=== PATIENT | male | born 1980 | race Caucasian/White ===

== ENCOUNTER 2017-03-11 03:50 | Emergency (ER) | payer MEDICAID ==
[~2017-03-11] VITALS: Ht 175.3 cm; Wt 81.2 kg
[~2017-03-11 03:50] MED LIST: Z.0.NO CURRENT MEDS
[2017-03-11 03:55] VITALS: BP 122/64; PULSE 72; RESP 18; TEMP 98.6; O2SAT 99
[2017-03-11] MEDS ORDERED: SODIUM CHLORIDE 0.9% FLUSH 10 ML FLUSH IVF PRN (04:30)
--- NOTE | 2017-03-11 04:30 | PD ---
HPI Chief Complaint: Chest Pain Time Seen by Provider: 04:27 Travel History International Travel<30 days: No Contact w/Intl Traveler<30days: No Traveled to known affect area: No History of Present Illness HPI 36-year-old male presents to the emergency department by EMS transport for complaint of chest pain onset 20 minutes prior to arrival to EMS transport. Patient received 162 mg of aspirin once a little nitroglycerin spray without symptom relief however patient here tells me he has no chest pain and that he wants to be Baron acted as he plans on killing himself and he has already ingested/ taken multiple medications prior to midnight and does not know what medications he took or how much of each medication that he took. Patient does complain of nausea. No prior history of cardiac disease. Patient states he has tried to hang himself in the past and is suicidal at this time. PFSH Past Medical History Medical History: Denies Significant Hx Depression: Yes (WITH SUICIDAL IDEATION AND PLANS) Diminished Hearing: No Tetanus Vaccination: > 5 Years Influenza Vaccination: No Past Surgical History Surgical History: No Previous Surgery Social History Alcohol Use: Yes (1 BEER TONIGHT "RARELY DRINKS".) Tobacco Use: No (DIPS) Substance Use: No Allergies-Medications (Allergen,Severity, Reaction): Coded Allergies: No Known Allergies (Unverified , 03/11/17) Reported Meds & Prescriptions Reported Meds & Active Scripts Active No Active Prescriptions or Reported Medications Review of Systems Except as stated in HPI: all other systems reviewed are Neg General / Constitutional: No: Fever Eyes: No: Visual changes HENT: No: Headaches, Congestion Cardiovascular: Positive: Chest Pain or Discomfort, No: Palpitations, Diaphoresis Respiratory: No: Shortness of Breath Gastrointestinal: Positive: Nausea, No: Vomiting, Diarrhea, Abdominal Pain Genitourinary: No: Dysuria Musculoskeletal: No: Myalgias, Arthralgias Skin: No Rash Neurologic: No: Weakness, Dizziness, Syncope Psychiatric: Positive: Depression, Suicidal Ideations, Mood Disorder, Substance Abuse, No: Anxiety Hematologic/Lymphatic: No: Lymph Node Enlargement Physical Exam Narrative GENERAL: Well-developed well-nourished male in no acute distress no respiratory distress reports "Doctor, I want to kill myself; you have to Baron Act me". SKIN: Warm and dry. HEAD: Normocephalic. EYES: No scleral icterus. No injection or drainage. NECK: Supple, trachea midline. No JVD or lymphadenopathy. CARDIOVASCULAR: Regular rate and rhythm without murmurs, gallops, or rubs. RESPIRATORY: Breath sounds equal bilaterally. No accessory muscle use. GASTROINTESTINAL: Abdomen soft, non-tender, nondistended. MUSCULOSKELETAL: No cyanosis, or edema. BACK: Nontender without obvious deformity. No CVA tenderness. Data Data Last Documented VS Vital Signs Date Time Temp Pulse Resp B/P (MAP) Pulse Ox O2 Delivery O2 Flow Rate FiO2 03/11/17 06:46 72 14 111/65 (80) 98 Room Air 03/11/17 03:55 98.6 Orders Orders Electrocardiogram (03/11/17 04:27) Complete Blood Count With Diff (03/11/17 04:27) Comprehensive Metabolic Panel (03/11/17 04:27) Prothrombin Time / Inr (Pt) (03/11/17 04:27) Act Partial Throm Time (Ptt) (03/11/17 04:27) Urinalysis - C+S If Indicated (03/11/17 04:27) Chest, Single Ap (03/11/17 04:27) Blood Glucose (03/11/17 04:27) Iv Access Insert/Monitor (03/11/17 04:27) Ecg Monitoring (03/11/17 04:27) Oximetry (03/11/17 04:27) Psych Screen (03/11/17 04:27) Sodium Chloride 0.9% Flush (Ns Flush) (03/11/17 04:30) Drug Screen, Random Urine (03/11/17 04:27) Alcohol (Ethanol) (03/11/17 04:27) Salicylates (Aspirin) (03/11/17 04:27) Tylenol (Acetaminophen) (03/11/17 04:27) Troponin I (03/11/17 04:27) Ckmb (Isoenzyme) Profile (03/11/17 04:27) CKMB (03/11/17 04:30) CKMB% (03/11/17 04:30) Sodium Chlor 0.9% 1000 Ml Inj (Ns 1000 M (03/11/17 07:30) Labs Laboratory Tests Test 03/11/17 04:30 White Blood Count 11.7 TH/MM3 Red Blood Count 4.31 MIL/MM3 Hemoglobin 13.2 GM/DL Hematocrit 39.4 % Mean Corpuscular Volume 91.4 FL Mean Corpuscular Hemoglobin 30.6 PG Mean Corpuscular Hemoglobin Concent 33.5 % Red Cell Distribution Width 12.7 % Platelet Count 226 TH/MM3 Mean Platelet Volume 8.3 FL Neutrophils (%) (Auto) 81.6 % Lymphocytes (%) (Auto) 11.0 % Monocytes (%) (Auto) 6.8 % Eosinophils (%) (Auto) 0.3 % Basophils (%) (Auto) 0.3 % Neutrophils # (Auto) 9.6 TH/MM3 Lymphocytes # (Auto) 1.3 TH/MM3 Monocytes # (Auto) 0.8 TH/MM3 Eosinophils # (Auto) 0.0 TH/MM3 Basophils # (Auto) 0.0 TH/MM3 CBC Comment DIFF FINAL Differential Comment Prothrombin Time 11.1 SEC Prothromb Time International Ratio 1.0 RATIO Activated Partial Thromboplast Time 27.2 SEC Blood Urea Nitrogen 17 MG/DL Creatinine 1.14 MG/DL Random Glucose 71 MG/DL Total Protein 7.2 GM/DL Albumin 4.0 GM/DL Calcium Level 8.7 MG/DL Alkaline Phosphatase 61 U/L Aspartate Amino Transf (AST/SGOT) 29 U/L Alanine Aminotransferase (ALT/SGPT) 33 U/L Total Bilirubin 0.9 MG/DL Sodium Level 140 MEQ/L Potassium Level 3.5 MEQ/L Chloride Level 105 MEQ/L Carbon Dioxide Level 26.9 MEQ/L Anion Gap 8 MEQ/L Estimat Glomerular Filtration Rate 73 ML/MIN Total Creatine Kinase 834 U/L Creatine Kinase MB 5.2 NG/ML Creatine Kinase MB % 0.6 % Troponin I LESS THAN 0.02 NG/ML Salicylates Level LESS THAN 1.7 MG/DL Acetaminophen Level LESS THAN 2.0 MCG/ML Ethyl Alcohol Level LESS THAN 3 MG/DL [facility] Medical Decision Making Medical Screen Exam Complete: Yes Emergency Medical Condition: Yes Medical Record Reviewed: Yes Interpretation(s) EKG sinus rhythm rate 70 extensive artifact with early repolarization ST elevation no reciprocal ST segment depression or T-wave inversion Differential Diagnosis Generalized weakness, viral syndrome, arrhythmia, electronic disturbance, dehydration, pneumonia,SIRS sepsis Narrative Course Patient administered IV fluids and Zofran; imaging studies ordered including CT brain noncontrast Patient taking oral hydration well after negative CT brain Care signed over to oncoming physician Dr. Chairez Scripts No Active Prescriptions or Reported Meds Wanda Flores MD Mar 11, 2017 04:30
[2017-03-11 04:44] LABS: AUTOMATED NEUTROPHIL # 9.6 TH/MM3 (1.8-7.7); BASOPHIL % 0.3 % (0.0-2.0); EOSINOPHIL % 0.3 % (0.0-4.0); HEMATOCRIT 39.4 % (39.0-51.0); HEMO FLAGS DIFF FINAL; LYMPHOCYTE # 1.3 TH/MM3 (1.0-4.8); MEAN CELL VOLUME 91.4 FL (80.0-100.0); MEAN CORPUSCULAR HEMOGLOBIN 30.6 PG (27.0-34.0); MEAN CORPUSCULAR HGB CONC 33.5 % (32.0-36.0); MONO % 6.8 % (0.0-8.0); NEUT % 81.6 % (16.0-70.0); PLATELET COUNT 226 TH/MM3 (150-450); RED BLOOD COUNT 4.31 MIL/MM3 (4.50-5.90); RED CELL DISTRIBUTION WIDTH 12.7 % (11.6-17.2); WHITE BLOOD COUNT 11.7 TH/MM3 (4.0-11.0)
[2017-03-11 05:01] LABS: APTT (PATIENT) 27.2 SEC (24.3-30.1); PROTHROMBIN TIME - PATIENT 11.1 SEC (9.8-11.6)
--- NOTE | 2017-03-11 05:08 | RADRPT ---
EXAM DATE/TIME: 03/11/2017 04:33 [place] COMPARISON: No previous studies available for comparison. INDICATIONS : Syncope. MEDICAL HISTORY : None. SURGICAL HISTORY : None. ENCOUNTER: Initial ACUITY: 1 day PAIN SCORE: 4/10 LOCATION: Left chest FINDINGS: A single view of the chest demonstrates the lungs to be symmetrically aerated without evidence of mas s, infiltrate or effusion. The cardiomediastinal contours are unremarkable. Osseous structures are intact. CONCLUSION: No acute disease. Stoney Cruz MD on March 11, 2017 at 5:06 Board Certified Radiologist. This report was verified electronically.
[2017-03-11 05:16] LABS: ACETAMINOPHEN LESS THAN 2.0 MCG/ML (10.0-30.0); ALT (GPT) 33 U/L (12-78); ANION GAP 8 MEQ/L (5-15); AST (GOT) 29 U/L (15-37); BICARBONATE 26.9 MEQ/L (21.0-32.0); BLOOD UREA NITROGEN 17 MG/DL (7-18); CHLORIDE 105 MEQ/L (98-107); GLOMERULAR FILTRATION RATE 73 ML/MIN (>89); POTASSIUM 3.5 MEQ/L (3.5-5.1); SODIUM (NA) 140 MEQ/L (136-145)
[2017-03-11 05:20] LABS: ALKALINE PHOSPHATASE 61 U/L (45-117); CREATINE KINASE 834 U/L (39-308); TOTAL BILIRUBIN ADULT 0.9 MG/DL (0.2-1.0)
[2017-03-11 05:33] LABS: CKMB 5.2 NG/ML (0.5-3.6)
[2017-03-11 05:42] LABS: ALCOHOL LESS THAN 3 MG/DL (0-5)
[2017-03-11 06:46] VITALS: BP 111/65; PULSE 72; RESP 14; O2SAT 98
[2017-03-11] MEDS ORDERED: SODIUM CHLOR 0.9% 1000 ML INJ 1,000 ML IV ONE (07:30)
--- NOTE | 2017-03-11 10:26 | EKG ---
Date Performed: 03/11/2017 Time Performed: 04:15:28 PTAGE: 36 years EKG: Sinus rhythm EARLY REPOLARIZATION BORDERLINE ECG NO PREVIOUS TRACING DOCTOR: Clay Armstrong Interpretating Date/Time 03/11/2017 10:20:02
[2017-03-11 11:48] LABS: BLOOD, URINE NEG (NEG); COMMENT (UR) CULT NOT INDICATED; CULTURE IF INDICATED CULT NOT INDICATED; GLUCOSE,URINE NEG (NEG); HYALINE CAST, URINE 3 /lpf (RARE); KETONE, URINE 150 mg/dL (NEG); MUCUS URINE MANY /lpf (OCC); NITRITE,URINE NEG (NEG); SQUAMOUS EPITHELIAL CELL URINE 1 /hpf (0-5); URINE COLOR YELLOW (YELLW/STRAW)
[2017-03-11 12:00] VITALS: BP 129/76; PULSE 62; RESP 18; TEMP 98.7; O2SAT 98
--- NOTE | 2017-03-11 13:23 | PD ---
Physical Exam Narrative Patient was seen by ED physician and signed out to me. Data Data Last Documented VS Vital Signs Date Time Temp Pulse Resp B/P (MAP) Pulse Ox O2 Delivery O2 Flow Rate FiO2 03/11/17 06:46 72 14 111/65 (80) 98 Room Air 03/11/17 03:55 98.6 Orders Orders Electrocardiogram (03/11/17 04:27) Complete Blood Count With Diff (03/11/17 04:27) Comprehensive Metabolic Panel (03/11/17 04:27) Prothrombin Time / Inr (Pt) (03/11/17 04:27) Act Partial Throm Time (Ptt) (03/11/17 04:27) Urinalysis - C+S If Indicated (03/11/17 04:27) Chest, Single Ap (03/11/17 04:27) Blood Glucose (03/11/17 04:27) Iv Access Insert/Monitor (03/11/17 04:27) Ecg Monitoring (03/11/17 04:27) Oximetry (03/11/17 04:27) Psych Screen (03/11/17 04:27) Sodium Chloride 0.9% Flush (Ns Flush) (03/11/17 04:30) Drug Screen, Random Urine (03/11/17 04:27) Alcohol (Ethanol) (03/11/17 04:27) Salicylates (Aspirin) (03/11/17 04:27) Tylenol (Acetaminophen) (03/11/17 04:27) Troponin I (03/11/17 04:27) Ckmb (Isoenzyme) Profile (03/11/17 04:27) CKMB (03/11/17 04:30) CKMB% (03/11/17 04:30) Sodium Chlor 0.9% 1000 Ml Inj (Ns 1000 M (03/11/17 07:30) Diet Regular Basic (03/11/17 Breakfast) Labs Laboratory Tests Test 03/11/17 04:30 03/11/17 11:20 White Blood Count 11.7 TH/MM3 Red Blood Count 4.31 MIL/MM3 Hemoglobin 13.2 GM/DL Hematocrit 39.4 % Mean Corpuscular Volume 91.4 FL Mean Corpuscular Hemoglobin 30.6 PG Mean Corpuscular Hemoglobin Concent 33.5 % Red Cell Distribution Width 12.7 % Platelet Count 226 TH/MM3 Mean Platelet Volume 8.3 FL Neutrophils (%) (Auto) 81.6 % Lymphocytes (%) (Auto) 11.0 % Monocytes (%) (Auto) 6.8 % Eosinophils (%) (Auto) 0.3 % Basophils (%) (Auto) 0.3 % Neutrophils # (Auto) 9.6 TH/MM3 Lymphocytes # (Auto) 1.3 TH/MM3 Monocytes # (Auto) 0.8 TH/MM3 Eosinophils # (Auto) 0.0 TH/MM3 Basophils # (Auto) 0.0 TH/MM3 CBC Comment DIFF FINAL Differential Comment Prothrombin Time 11.1 SEC Prothromb Time International Ratio 1.0 RATIO Activated Partial Thromboplast Time 27.2 SEC Blood Urea Nitrogen 17 MG/DL Creatinine 1.14 MG/DL Random Glucose 71 MG/DL Total Protein 7.2 GM/DL Albumin 4.0 GM/DL Calcium Level 8.7 MG/DL Alkaline Phosphatase 61 U/L Aspartate Amino Transf (AST/SGOT) 29 U/L Alanine Aminotransferase (ALT/SGPT) 33 U/L Total Bilirubin 0.9 MG/DL Sodium Level 140 MEQ/L Potassium Level 3.5 MEQ/L Chloride Level 105 MEQ/L Carbon Dioxide Level 26.9 MEQ/L Anion Gap 8 MEQ/L Estimat Glomerular Filtration Rate 73 ML/MIN Total Creatine Kinase 834 U/L Creatine Kinase MB 5.2 NG/ML Creatine Kinase MB % 0.6 % Troponin I LESS THAN 0.02 NG/ML Salicylates Level LESS THAN 1.7 MG/DL Acetaminophen Level LESS THAN 2.0 MCG/ML Ethyl Alcohol Level LESS THAN 3 MG/DL Urine Color YELLOW Urine Turbidity HAZY Urine pH 6.0 Urine Specific [place] 1.029 Urine Protein TRACE mg/dL Urine Glucose (UA) NEG mg/dL Urine Ketones 150 mg/dL Urine Occult Blood NEG Urine Nitrite NEG Urine Bilirubin NEG Urine Urobilinogen LESS THAN 2.0 MG/DL Urine Leukocyte Esterase NEG Urine RBC 2 /hpf Urine WBC 2 /hpf Urine Squamous Epithelial Cells 1 /hpf Urine Hyaline Casts 3 /lpf Urine Mucus MANY /lpf Microscopic Urinalysis Comment CULT NOT INDICATED Urine Opiates Screen NEG Urine Barbiturates Screen NEG Urine Amphetamines Screen NEG Urine Benzodiazepines Screen NEG Urine Cocaine Screen POS Urine Cannabinoids Screen NEG MDM Supervised Visit with ASHLEY: No Interpretation(s) Last Impressions Chest X-Ray 03/11/17 0427 Signed Impressions: Service Date/Time: Saturday, March 11, 2017 04:33 - CONCLUSION: No acute disease. Stoney Cruz MD 1321 PM. CBC within normal limit. CMP within normal limit. Cardiac enzymes are normal. Total CK 834 with normal MB fraction. Salicylate and acetaminophen negative. Alcohol negative. Urine drug screen positive for cocaine. UA is negative. Scripts No Active Prescriptions or Reported Meds Hunter Chairez MD Mar 11, 2017 13:23
[2017-03-11 18:45] VITALS: BP 131/68; PULSE 64; RESP 19; O2SAT 95
[2017-03-11 19:10] VITALS: BP 119/62; PULSE 80; RESP 18; O2SAT 100
[2017-03-11 21:52] VITALS: BP 120/63; PULSE 66; RESP 18; O2SAT 98
[2017-03-12 02:00] VITALS: BP 109/53; PULSE 56; RESP 18; O2SAT 97
[2017-03-12 06:49] VITALS: BP 121/56; PULSE 62; RESP 18
--- NOTE | 2017-03-12 22:27 | PD.PSY.CON ---
Provisional Diagnosis Admission Date Mar 11, 2017 at 13:29 [place]. Substance induced mood disorder; cocaine use disorder History of Present Illness Service Psychiatry Consult Requested By ED Reason for Consult Baron act Primary Care Physician No Primary Care Physician HPI Patient is a 36 y/o man, living with common law and three children, employed, with past psychiatric history of self reported bipolar disorder, cocaine use disorder, one prior psychiatric admission, one prior suicide attempt who came into the ED for chest pain and stated wanting to kill himself in the context of recent argument with and cocaine intoxication. As per ED note, patient came in for chest pain, stating wanting to kill himself ; positive for cocaine on urine toxicology. Patient was found lying on hospital bed, calm and cooperative with interview. He states that he follows up at [facility] and was switched from depakote to lithium but feels that the new medications keeps him "on edge" and angry which he would like to go back to the depakote. Patient reports his mood latley being "bad", depressed at times, noted to have decreased sleep, no change in energy or concentrationdenies any SI but has felt "a little bit helpless and hopeless". He states that he recently used cocaine and that he does not want to end his life as he states that he lives for his children, his and himself. He reports that his next oupatient appointment is in March but plans on walking into the clinic to see his psychiatrist about his medications. Collateral information from : she states that they had argued about him being "high on crack cocaine" and had left the house. She states that when he is not using cocaine he is fine. She states wanting to be supportive of him if he decides to accept substance use treatment. She states that she has no safety concerns at this time with him and feels safe to take him home. Past psychiatric history: previous psychiatric diagnosis of bipolar disorder, one previous psychiatric admissions (2013), one previous suicide attempt (via hanging), denies self injurious behavior. Has outpatient psychiatrist at [facility], last seen 1 month ago. Current medications: [place], previous trials with Seroquel, trazodone, Zoloft. Substance use history: cocaine use (+), used x couple of days, longest sobriety was 4-5 years Past medical history: denies Allergies: NKDA Social history: single, three children, domiciled with common law and children, employed, highest education 11th grade. Legal history: was in alf three times for non violent crimes, robbery charges. Review of Systems Except as stated in HPI: all other systems reviewed are Neg Past Family Social History Coded Allergies: No Known Allergies (Unverified , 03/11/17) Discontinued Reported Medications Miscellaneous (No Current Meds) Misc 10/26/06 Current Medications Medications (Trade) Dose Ordered Sig/Ward Route Start Time Stop Time Status Last Admin (NS Flush) 2 ml UNSCH PRN IVF 03/11/17 04:30 Social History single, three children, domiciled with common law and children, employed, highest education 11th grade. Patient's Strengths (min. 2) verbal and communicative Physical Exam Patient found to be in no acute distress,, no noted gross motor abnormalities, no tremors of EPS, no noted psychomotor agitation of retardation. Vital Signs Vital Signs Date Time Temp Pulse Resp B/P (MAP) Pulse Ox O2 Delivery O2 Flow Rate FiO2 03/12/17 14:58 03/12/17 06:49 62 18 03/12/17 02:00 97 03/11/17 12:00 98.7 Room Air Mental Status Examination Appearance appears stated age, [facility], fair hygiene and grooming, calm and cooperative with interview; fair eye contact Speech: Unremarkable Orientation: x3 Memory: Unremarkable Thought Process: Logical, Organized Thought Content: Unremarkable Language fluent and spontaneous Fund of Knowledge fair Hallucination Type: None Attention and Concentration: Good Suicidal Ideation: No Previous Suicide Attempts: Yes Homicidal Ideation: No Previous Homicide Attempts: No Insight: Fair Judgment: WNL Affect: Euthymic Mood: Appropriate Motor Activity: Normal gait Assessment & Plan Problem List: (1) Substance induced mood disorder ICD Codes: F19.94 - Other psychoactive substance use, unspecified with psychoactive substance-induced mood disorder (2) Cocaine use disorder, moderate, dependence ICD Codes: F14.20 - Cocaine dependence, uncomplicated Assessment & Plan Patient is a 36 y/o man, living with common law and three children, employed, with past psychiatric history of self reported bipolar disorder, cocaine use disorder, one prior psychiatric admission, one prior suicide attempt who came into the ED for chest pain and stated wanting to kill himself in the context of recent argument with and cocaine intoxication. Patient now cleared from intoxication, denies any thoughts of self harm and agrees to go to [facility] to seek follow up and request substance use rehabilitation services. Patient with history of previous suicide attempt with current substance puts patient in chronic moderate risk for self harm but at this time is at low acute risk as patient no longer endorsing suicidality, no longer intoxicated, endorses reason to live are his children, employed, has outpatient services. Patient at this time is psychiatrically clear for discharge. Patient counseled on abstinence from substance use, advised to call 911 or go to nearest ED in case of emergency. Patient agrees to continue outpatient follow up. Patient's contacted and aware of plan which she is supportive of. Patient and family agree with plan. Koffi Queen MD Mar 12, 2017 22:27
== END 2017-03-12 14:58 | disposition home or self-care (01) ==
LOC: NEPC 03:50 → UNDOADMIN 13:29 → NEDA 13:29 → NEPC 03-12 14:58
DX: R07.9 Chest pain, unspecified (principal); R11.0 Nausea; R45.851 Suicidal ideations; F39 Unspecified mood [affective] disorder
CPT/HCPCS: 71010; 80053; 80307; 81001; 82550; 82552; 84484; 85025; 85610; 85730; 93005; 96360; 99285; J7030